=== PATIENT | female | born 1975 | race Caucasian/White ===

== ENCOUNTER 2016-12-09 11:18 | Emergency (ER) | payer MEDICAID ==
[~2016-12-09] VITALS: Ht 157.5 cm; Wt 79.7 kg
[2016-12-09 11:19] VITALS: BP 154/94
== END 2016-12-09 11:36 | disposition home or self-care (01) ==
LOC: ED 11:30
DX: B85.0 Pediculosis due to Pediculus humanus capitis (principal)
CPT/HCPCS: 99283

== ENCOUNTER 2016-12-15 12:32 | Emergency (ER) | payer MEDICAID ==
[~2016-12-15] VITALS: Ht 157.5 cm; Wt 78.0 kg
[2016-12-15 12:33] VITALS: BP 150/100
== END 2016-12-15 14:13 | disposition home or self-care (01) ==
LOC: ED 14:07
DX: B85.0 Pediculosis due to Pediculus humanus capitis (principal); R30.0 Dysuria
CPT/HCPCS: 81001; 87086; 99284

== ENCOUNTER 2017-01-01 10:32 | Emergency (ER) | payer MEDICAID ==
[~2017-01-01] VITALS: Ht 157.5 cm; Wt 80.0 kg
[2017-01-01 10:40] VITALS: BP 146/94
== END 2017-01-01 11:14 | disposition home or self-care (01) ==
LOC: ED 11:08
DX: L03.811 Cellulitis of head [any part, except face] (principal); B85.0 Pediculosis due to Pediculus humanus capitis
CPT/HCPCS: 99283

== ENCOUNTER 2017-01-18 06:51 | Emergency (ER) | payer MEDICAID ==
[~2017-01-18] VITALS: Ht 157.5 cm; Wt 79.0 kg
[2017-01-18 06:53] VITALS: BP 158/100
== END 2017-01-18 08:32 | disposition home or self-care (01) ==
LOC: ED 08:19
DX: L50.8 Other urticaria (principal)
CPT/HCPCS: 36415; 81001; 84703; 87086; 99284

== ENCOUNTER 2017-03-11 13:53 | Emergency (ER) | payer MEDICAID ==
[~2017-03-11] VITALS: Ht 157.5 cm; Wt 81.5 kg
[2017-03-11 13:56] VITALS: BP 145/93
== END 2017-03-11 15:05 | disposition home or self-care (01) ==
LOC: ED 15:00
DX: Z00.00 Encounter for general adult medical examination without abnormal findings (principal); F15.10 Other stimulant abuse, uncomplicated; F17.200 Nicotine dependence, unspecified, uncomplicated
CPT/HCPCS: 99281

== ENCOUNTER 2017-05-11 18:29 | Emergency (ER) | payer MEDICAID ==
[~2017-05-11] VITALS: Ht 157.5 cm; Wt 81.0 kg
[2017-05-11 20:29] LABS: HCG UR SG 1.031 (1.003-1.030)
[2017-05-11 20:38] LABS: MICROSCOPIC INDICATED
[2017-05-11 21:05] LABS: CULTURE INDICATED? YES
[2017-05-11 21:11] VITALS: BP 149/88
== END 2017-05-11 21:31 | disposition home or self-care (01) ==
LOC: ED 21:15
DX: B85.0 Pediculosis due to Pediculus humanus capitis (principal); F15.10 Other stimulant abuse, uncomplicated
CPT/HCPCS: 81001; 81025; 87086; 99284

== ENCOUNTER 2017-09-23 08:32 | Emergency (ER) | payer MEDICAID ==
[~2017-09-23] VITALS: Ht 157.5 cm; Wt 83.0 kg
[2017-09-23 08:40] VITALS: BP 150/99
== END 2017-09-23 08:56 ==
LOC: ED 08:50
DX: F41.9 Anxiety disorder, unspecified (principal); Z53.21 Procedure and treatment not carried out due to patient leaving prior to being seen by health care provider

== ENCOUNTER 2017-10-13 16:51 | Emergency (ER) | payer MEDICAID ==
[~2017-10-13] VITALS: Ht 157.5 cm; Wt 84.2 kg
[2017-10-13 16:54] VITALS: BP 135/85
[2017-10-13] MEDS ORDERED: LIDOCAINE-MPF 1%, 5ML INFIL ONE (17:30)
== END 2017-10-13 17:24 | disposition home or self-care (01) ==
LOC: ED 17:00
DX: L02.412 Cutaneous abscess of left axilla (principal); F17.210 Nicotine dependence, cigarettes, uncomplicated
CPT/HCPCS: 99283

== ENCOUNTER 2017-12-22 05:39 | Emergency (ER) | payer MEDICAID | END 2017-12-22 06:01 | disposition left against medical advice (07) | LOC: ED 05:50 | DX: R51 Headache (principal); Z53.21 Procedure and treatment not carried out due to patient leaving prior to being seen by health care provider ==

== ENCOUNTER 2017-12-22 15:07 | Emergency (ER) | payer MEDICAID | END 2017-12-22 15:16 | disposition left against medical advice (07) | LOC: ED 15:10 | DX: R21 Rash and other nonspecific skin eruption (principal) | CPT/HCPCS: 99281 ==

== ENCOUNTER 2018-09-04 14:24 | Emergency (ER) | payer MEDICAID ==
[~2018-09-04] VITALS: Ht 157.5 cm; Wt 80.9 kg
[2018-09-04 14:29] VITALS: BP 128/86
[2018-09-04] MEDS ORDERED: HYDROcodone/APAP 5/325 TABLET ONE (15:26)
[2018-09-04] MEDS ORDERED: HYDROcodone/APAP 5/325 TABLET PO ONE (15:30)
--- NOTE | 2018-09-04 15:56 | NUR ---
pt refused splint
== END 2018-09-04 15:59 | disposition home or self-care (01) ==
LOC: ED 15:54
DX: S82.65XA Nondisplaced fracture of lateral malleolus of left fibula, initial encounter for closed fracture (principal); X50.1XXA Overexertion from prolonged static or awkward postures, initial encounter; Y93.89 Activity, other specified; Y92.410 Unspecified street and highway as the place of occurrence of the external cause; Y99.8 Other external cause status
CPT/HCPCS: 99283